=== PATIENT | male | born 2000 | race Caucasian/White ===

== ENCOUNTER 2023-09-27 16:10 | Emergency (ER) | payer SELFPAY ==
[2023-09-27 16:20] VITALS: BP 135/91; PULSE 86; RESP 20; TEMP 36.3; O2SAT 96
--- NOTE | 2023-09-27 16:22 | ED.GENADULT ---
HPI - General Adult General Chief complaint: Eye Problems Stated complaint: eyes bloodshot/sickness Time Seen by Provider: 09/27/23 16:23 Source: patient Mode of arrival: ambulatory Limitations: no limitations History of Present Illness HPI narrative: 23 y/o male presented for c/o fevers up to 103.5 F, chills, nausea/vomiting, productive cough, body aches, chest congestion, and headache. Onset 6 days. Reports some improvement today, last emesis was yesterday. Has not eaten since 1800 yesterday. Decreased appetite throughout. Also reports 'blood shot eyes. He has been taking Mucinex and Excedrin for his symptoms. He denies any known sick contacts. He denies any ear pain, sinus pressure, shortness of breath, wheezing, chest pain, dizziness, abdominal pain, diarrhea, or constipation. Tested negative for covid the day after symptom onset. Related Data Home Medications Medication Instructions Recorded Confirmed No Home Medications 09/27/23 09/27/23 Allergies Allergy/AdvReac Type Severity Reaction Status Date / Time No Known Allergies Allergy Unverified 09/27/23 16:22 Review of Systems Review of Systems: CONSTITUTIONAL: Reports body aches, fever, chills, and sweats. EYES: Reports bilateral eye redness. Denies visual changes, pain, or discharge. ENT: Reports congestion. Denies rhinorrhea, sore throat, or otalgia. CARDIOVASCULAR: Denies chest pain, palpitations, or edema. RESPIRATORY: Reports productive cough. Denies dyspnea. GASTROINTESTINAL: Reports nausea and vomiting. Denies abdominal pain or diarrhea. GENITOURINARY: Denies dysuria or hematuria. SKIN: Denies rash, itching, or wounds. MUSCULOSKELETAL: Denies back pain, joint pain, or myalgia. NEUROLOGIC: Reports headache. Denies numbness, tingling, or weakness. All systems reviewed & are unremarkable except as noted in HPI and below PMFSH Comments At time of signature, I have reviewed and agree with nursing past medical, surgical, social and family history unless otherwise noted. Please see nursing chart for further information. There is no relevant family history pertinent to the presenting complaint Exam Narrative: GENERAL: mildly Ill-appearing, well-nourished, and in no acute distress. EYES: EOMI. No drainage. Bilateral subconjunctival hemorrhages to lower eyes; no swelling. ENT: Mucous membranes pink and moist. No rhinorrhea. TMs with scar tissue and but otherwise normal bilaterally. Oropharynx erythematous without exudates. Tonsils surgically absent. Uvula midline. NECK: Normal AROM. Supple. No lymphadenopathy. CHEST: No respiratory distress. Clear to auscultation. HEART: Regular rate and rhythm. No murmur appreciated. Normal peripheral pulses. ABDOMEN: Soft, nontender, nondistended, normal active bowel sounds. SKIN: Warm, dry, no rash. Capillary refill normal. Normal skin turgor. NEURO: No focal deficits. Alert and oriented x3. Gait steady. PSYCH: Normal affect. Course Course Emergency Course: Patient is aware of diagnosis, understands and agrees to treatment plan. Anticipatory guidance given. Patient agrees to follow-up as directed and is aware of reasons to seek care at the emergency department. Portions of this record may have been created with voice recognition software Level of Care: Express Care Visit Vital Signs Vital signs: Vital Signs Temperature 97.3 F L 09/27/23 16:20 Pulse Rate 86 09/27/23 16:20 Respiratory Rate 20 09/27/23 16:20 Blood Pressure 135/91 H 09/27/23 16:20 Pulse Oximetry 96 09/27/23 16:20 Oxygen Delivery Room Air 09/27/23 16:20 Temperature 97.3 F L 09/27/23 16:20 Pulse Rate 86 09/27/23 16:20 Respiratory Rate 20 09/27/23 16:20 Blood Pressure 135/91 H 09/27/23 16:20 Pulse Oximetry 96 09/27/23 16:20 Oxygen Delivery Room Air 09/27/23 16:20 Medical Decision Making MDM Narrative Medical decision making narrative: Discussed physical exam findings and negative
[2023-09-27 16:46] LABS: EDSTREPNEGPOS1 Presumptive Negative
[2023-09-27 16:54] LABS: EDINFLUASCREEN Negative; EDINFLUBSCREEN Negative
== END 2023-09-27 17:02 | disposition home or self-care (01) ==
PROVIDERS: Emergency Provider Nurse Practitioner Family
DX: B34.9 Viral infection, unspecified (principal); Z20.822 Contact with and (suspected) exposure to COVID-19
CPT/HCPCS: 87081; 87426; 87804; 87880; 99203; G0463